=== PATIENT | male | born 1975 | race Caucasian/White ===

== ENCOUNTER → 2022-09-06 | Outpatient (REF) | payer BC ==
[2022-09-06 19:34] LABS: GC DNA AMPLIFICATION NEGATIVE (NEGATIVE)
== END ==
LOC: M LAB REF 17:33
PROVIDERS: ATTEND Registered Nurse
DX: Z11.3 Encounter for screening for infections with a predominantly sexual mode of transmission (principal)

== ENCOUNTER → 2022-12-29 | Outpatient (CLI) | payer BC | LOC: M PLAIMG 11:20 | PROVIDERS: ATTEND Registered Nurse | DX: R06.02 Shortness of breath (principal) ==